=== PATIENT | male | born 1950 | race Caucasian/White ===

== ENCOUNTER → 2023-09-04 10:56 | Outpatient (CLI) | payer MEDICARE, SELFPAY ==
--- NOTE | ~2023-09-04 | CT_ITS ---
CT of the Abdomen and Pelvis: Indication: Inguinal hernia Technique: 2.5 mm axial scans were obtained through the abdomen and pelvis following intravenous adm inistration of 100 cc of Omnipaque 350. Dose reduction technique was used on this scan by utilizing a utomated exposure control and iterative reconstruction technique. The dose-length product (DLP) was 9 91.26 mGy-cm. Findings: Scans through the lung bases are unremarkable. Multiple hepatic and renal cysts are noted. The spleen, pancreas, gallbladder, and adrenal glands are within normal limits. No evidence of aortic aneurysm. No lymphadenopathy. No bowel obstruction or bowel wall thickening. There is no evidence to suggest acute appendicitis. Th ere is sigmoid diverticulosis. Images through the pelvis are degraded by streak artifact from bilateral hip arthroplasty. Urinary bl adder grossly unremarkable. No definite pelvic mass seen. No ascites. Small fat-containing right ingu inal hernia noted. Impression: Small fat-containing right inguinal hernia. Reviewed, dictated and finalized at [facility]. HING DIETITIAN Impression: Small fat-containing right inguinal hernia.
[2023-09-04 11:26] LABS: Estimated Glomerular Filt Rate > 60
== END ==
PROVIDERS: PCP Family Medicine; Visit Provider Family Medicine
DX: K40.90 Unilateral inguinal hernia, without obstruction or gangrene, not specified as recurrent (principal)
CPT/HCPCS: 74177; Q9967

== ENCOUNTER 2023-10-08 10:52 | Outpatient (CLI) | payer MEDICARE, SELFPAY ==
[2023-10-08 12:08] LABS: Anion Gap 7 mmol/L (8-16); Blood Urea Nitrogen 19 mg/dL (9-20); Calcium 9.2 mg/dL (8.4-10.2); Carbon Dioxide 29 mmol/L (22-30); Chloride 102 mmol/L (98-107); Estimated Glomerular Filt Rate > 60; Glucose 103 mg/dL (65-110); Potassium 4.3 mmol/L (3.4-5.0); Sodium 138 mmol/L (137-145)
== END 2023-10-08 10:53 | disposition home or self-care (01) ==
LOC: ANHSURGERY 10:57
PROVIDERS: Anesthesiology; PCP Family Medicine; Visit Provider Surgery
DX: Z01.818 Encounter for other preprocedural examination (principal); K40.90 Unilateral inguinal hernia, without obstruction or gangrene, not specified as recurrent; Z79.899 Other long term (current) drug therapy
CPT/HCPCS: 36415; 80048; 86850; 86900; 86901

== ENCOUNTER 2023-10-10 00:35 | Day surgery (SDC) | payer MEDICARE, SELFPAY ==
[2023-10-02 13:53] VITALS: BMI 26.8
--- NOTE | 2023-10-02 14:07 | PC.NURSE ---
PRE-OP INSTRUCTIONS, PLEASE READ CAREFULLY Report to the Outpatient Waiting Room, entrance under the green pavilion located off [facility], at time _1000_ on date _10/10/23_. Planned Procedure Time: _1200_. Time changes happen often and if your time is changed the preop area will call you the afternoon before. - You and your visitor will be asked to self-screen and do not enter if you have any COVID symptoms. - A mask is optional within the hospital at this time. Patients may have clear liquids (water, carbonated beverages, clear teas, apple juice) until 3 hours prior to surgery with a maximum of 20 ounces. - No food from midnight until time of surgery Take the following medications with a SIP of water the morning of surgery: _PAROXETINE_ DO NOT STOP ANY OF YOUR OTHER PRESCRIPTION MEDICATIONS PRIOR TO SURGERY ?EXCEPT THE FOLLOWING Medications to discontinue per physician __FISH OIL PER DR. CAMPA'S INSTRUCTIONS___, Date to take last dose Please no make-up, nail greenlandic, hairspray, perfume, deodorant, or body powder the day of surgery. No jewelry (including any body piercings) or valuables the day of surgery, leave them at home. Please take a shower or bath the night before, or the morning of, surgery with an antibacterial soap. Wear comfortable, loose fitting clothing. - Jewelry must be removed prior to entering the operating room. Rings and piercings that are not removed may be cut off. - The hospital will not accept responsibility for valuables. - Please leave all valuables, including medications, at home the day of surgery. If you are going home after surgery, a licensed otr driver must drive you home. - NO public transportation without another adult if you receive anesthesia. - We recommend that an adult stay with you for 24 hours following discharge. - We also recommend that you do not drive, make important decision, drink alcoholic beverages, or take any drugs that were not prescribed by your health care provider for at least 24 hours after your discharge time. Follow any additional instructions given to you from your surgeon. If you or anyone in your household have experienced Covid symptoms in the past week, please notify your surgeon or the nurse liaison at the phone number below for possible testing. Telephone instructions given to _PATIENT_and asked if any additional questions and then verbalized understanding. Patient advised to call surgeon office or pre surgery nurse liaison [phone] if any additional questions.
[2023-10-10] VITALS (8 sets, daily range): BP systolic 128–148; BP diastolic 79–100; PULSE 69–78; RESP 13–21; TEMP 36.6; O2SAT 94–96
[2023-10-10] MEDS: ACETAMINOPHEN 500 MG TABLET 1000 MG PO (10:22)
[2023-10-10] MEDS: LACTATED RINGERS 1,000 ML 30 ML IV CONT ×2 (10:41→13:42)
[2023-10-10] MEDS: KETOROLAC 15 MG/ML VIAL (*BKC) IV PUSH (10:42)
--- NOTE | 2023-10-10 11:37 | WPDANESEPPF ---
Anes - Initial Pre Proc Eval Procedure: Operation Date: 10/10/23 12:00 Proposed Procedures p Robotic Assisted Right Inguinal Hernia Repair with Mesh - Tala Houser MD Date/Time: 10/10/23 11:37 Surgeon: Tala Houser MD Pre Op Diagnosis: Right Inguinal Hernia Patient Data Age: 73 Gender: M Height: 1.91 m Weight: 98.4 kg Last Vital Signs Temp 97.9 F 10/10/23 10:05 Pulse 78 10/10/23 10:05 Resp 16 10/10/23 10:05 BP 143/100 H 10/10/23 10:05 Pulse Ox 96 10/10/23 10:05 O2 Del Method Room Air 10/10/23 10:05 Allergies Allergy/AdvReac Type Severity Reaction Status Date / Time No Known Allergies Allergy Mild Verified 10/10/23 09:46 Home Medications Medication Instructions Recorded Confirmed Type [id number] tablet 1 tablet PO DAILY 05/10/22 10/02/23 History omega-3 fatty acids-fish oil 440 1 cap PO DAILY 05/10/22 10/02/23 History mg-880 mg capsule hydrocortisone 2.5 % topical cream 1 applic topical BID PRN rash #454 09/14/22 10/02/23 Rx grams tamsulosin 0.4 mg capsule See Rx Instructions .Route 07/08/23 10/02/23 Rx .COMPLEX #90 caps lisinopril 20 See Rx Instructions .Route 07/23/23 10/02/23 Rx mg-hydrochlorothiazide 12.5 mg .COMPLEX #90 tabs tablet paroxetine HCl 20 mg tablet See Rx Instructions .Route 07/23/23 10/02/23 Rx .COMPLEX #90 tabs simvastatin 40 mg tablet See Rx Instructions .Route 07/23/23 10/02/23 Rx .COMPLEX #90 tabs Patient hx anesthesia problems: none Family hx anesthesia problems: none Results Review: All pre-operative results and documents have been reviewed as part of the pre-operative evaluation. [facility] Past Medical History Medical History Annual physical exam Encounter for screening for malignant neoplasm of prostate Inguinal hernia Painful total knee replacement, left Right inguinal hernia Screening for colon cancer Surgical History Surgical History History of knee replacement procedure of left knee Status post left hip replacement Status post right hip replacement Family History Family History Father Cancer Mother Depression Breast cancer Other Diabetes mellitus Heart disease Social History Social History Smoking packs per day: 1.25 Smoking cigarettes per day: 25.0 Years smoked: 10 Smoking pack-years: 12.50 Smoking status: Former smoker Tobacco type: cigarettes Second hand tobacco smoke exposure: No Smoking end date: 09/16/79 Alcohol intake: current Drinks per week: 2 Substance use: never Substance use type: does not use Living arrangements: alone Occupation/Education: retired Gender identity (if verbalized by the patient): Male Spiritual care concerns: No Anes - Eval Final PreProcedure Day of Procedure 10/10/23 11:37 Patient weight: normal Heart: regular rate and rhythm Lungs: clear to auscultation Airway: Mallampati scale class II Neurological: alert and oriented Last oral intake: >/= 8 hours ASA classification: II Emergent: no Anesthetic plan: proceed Anesthesia type and monitoring: general ETT and standard monitoring Results Review: All pre-operative results and documents have been reviewed as part of the pre-operative evaluation. Informed Consent: The patient's anesthetic plan and its attendant risks and benefits were discussed with the patient/family/POA. Questions were solicited and answers provided to the satisfaction of the patient/family/POA.
--- NOTE | 2023-10-10 11:57 | WPDHPUPDATE1 ---
History and Physical Update Update Date/Time: 10/10/23 11:57 History and Physical has been reviewed, including an updated exam of the patient. There are NO changes in the patient's condition. Risks, benefits, and alternatives have been discussed and questions answered. Patient agrees to proceed with procedure.
[2023-10-10] MEDS: ceFAZolin 2 GM/D5W 50 ML 2 GM/50 ML BAG IVPB (12:10)
[2023-10-10] MEDS: BUPIVACAINE/EPINEPHRINE 0.5% 30 ML VIAL INFILTRATE (12:39)
--- NOTE | 2023-10-10 15:24 | P.OP_ITS ---
Procedure Note - Detailed Date of Procedure 10/10/23 Pre-op Diagnosis Right Inguinal Hernia Post-op Diagnosis Same Procedure Performed robotic assisted right inguinal hernia repair with mesh Surgeon Tala Houser MD Anesthesia General Indications 73-year-old male with progressively worsening right inguinal hernia over the last few years Findings indirect right inguinal hernia Description of Procedure Patient was brought into the operating room and placed in the supine position. After adequate induction of general anesthesia, the patient was prepped and draped in normal sterile fashion. A time-out was then done to verify the patient's identity, as well as the procedure being performed. Began by making a 8 mm incision in the supraumbilical region, a Veress needle was then placed into the peritoneal cavity. CO2 gas was then insufflated and after adequate pneumoperitoneum was achieved, the Veress needle was removed. I then placed an 8 mm trocar through this incision. I then placed the endoscope through this trocar site and under direct visualization placed 2 further 8 mm ports in the right and left mid abdomen. The Medic [employer]i robot was then docked to the 3 trocar sites. I then scrubbed out and went to the robotic console. Upon examining the pelvis, it was noted that the patient had a moderate right inguinal hernia. The left side was examined and no hernia defect was noted. I began by making a preperitoneal flap approximately 6 cm superior to the defect. This flap was carried medially past the umbilical ligaments in laterally to the transversalis. It then began dissection of my medial compartment taking this down to the pubic tubercle. I then began the lateral dissection taking this down to the transversalis fascia. Once these compartments were achieved, I began dissection around the cord structures. A moderate indirect hernia was noted at this point. Using careful dissection, was able to reduce indirect hernia sac off the cord structures. Once this was adequately done, I went ahead and placed a large piece of 3D Max mesh into the abdominal cavity. The mesh was carefully positioned, centering the center of the mesh over the indirect defect. Once this was done, was very satisfied with our repair. Using 3-0 Vicryl sutures, I tacked the mesh medially to Storm's ligament. Two lateral sutures were placed from the mesh to the transversalis fascia. I then closed the peritoneal flap with a running 2.0 V Lock suture. The abdomen was then desufflated, and all ports were removed. All incisions were then closed with the 4.0 monocryl suture. Dermabond was placed on each wound. The patient tolerated the procedure well, was extubated in the operating room postoperatively, and will now be transferred to the recovery room in stable condition. Implants large 3DMax mesh Estimated Blood Loss 10 Drains No Packing No Pathology None sent Complications No immediate complications Condition Stable Disposition PACU [facility] Billing Surgery - Charge Forward: Surgery Billing
== END 2023-10-10 15:28 | disposition home or self-care (01) ==
PROVIDERS: PCP Family Medicine; Visit Provider Surgery
PROC: 8E0Y4CZ Robotic Assisted Procedure of Lower Extremity, Percutaneous Endoscopic Approach (ICD-10-PCS; CPT 49650; principal; 2023-10-10 12:00)
DX: K40.90 Unilateral inguinal hernia, without obstruction or gangrene, not specified as recurrent (principal); I10 Essential (primary) hypertension; Z98.890 Other specified postprocedural states; Z87.891 Personal history of nicotine dependence; Z80.3 Family history of malignant neoplasm of breast; Z82.49 Family history of ischemic heart disease and other diseases of the circulatory system
CPT/HCPCS: 49650; S2900; A9270; C1781; J0690; J1100; J1170; J1885; J2405; J2704; J3010; J7120

== ENCOUNTER 2025-01-11 14:09 | Emergency (ER) | payer MEDICARE, SELFPAY ==
--- NOTE | 2025-01-11 14:46 | ED.GENADULT ---
HPI - General Adult General Chief complaint: Cardiac Arrest/CPR Stated complaint: cardiac arrest Time Seen by Provider: 01/11/25 14:16 History of Present Illness HPI narrative: Patient was found down in an alley CPR was started at 1:27 p.m. 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 Patient had remained asystole the entire duration CPR. Patient did have a Carrington device in place. Patient did have a pulse with compressions but no pulse during pulse check. Related Data Home Medications ?Medication ?Instructions ?Recorded ?Confirmed ?Last Taken ?Type omega-3 fatty acids-fish oil 440 1 cap PO DAILY 05/10/22 05/19/24 Unknown History mg-880 mg capsule aspirin 81 mg tablet,delayed 81 mg PO DAILY 12/26/23 05/19/24 Unknown History release (Adult Low Dose Aspirin) Allergies Allergy/AdvReac Type Severity Reaction Status Date / Time No Known Allergies Allergy Mild Verified 09/28/24 13:54 Review of Systems Review of Systems: ROS unobtainable: Yes unobtainable due to medical condition PMFSH Past Medical History Medical History (Updated 01/11/25 @ 14:54 by Juan Manzo MD) Chronic dermatitis of hands HC 2.5% cream Hypertension Right inguinal hernia Screening for colon cancer Encounter for screening for malignant neoplasm of prostate Annual physical exam Painful total knee replacement, left Hyperlipemia Surgical History Surgical History (Updated 05/19/24 @ 11:09 by Mercy Vo PA-C) Status post left hip replacement Status post right hip replacement History of knee replacement procedure of left knee Family History Family History Father Cancer Mother Depression Breast cancer Other Diabetes mellitus Heart disease Social History Social History Smoking packs per day: 1.25 Smoking cigarettes per day: 25.0 Years smoked: 10 Smoking pack-years: 12.50 Smoking status: Former smoker Tobacco type: cigarettes Second hand tobacco smoke exposure: No Smoking end date: 09/16/79 Alcohol intake: current Drinks per week: 2 Substance use: never Substance use type: does not use Living arrangements: alone Occupation/Education: retired Gender identity (if verbalized by the patient): Male Spiritual care concerns: No Exam Narrative: APPEARANCE: Unresponsive HEAD: normocephalic, atraumatic. EYES: Pupils fixed and dilated NOSE: Normal no drainage THROAT: Intubated RESPIRATORY: Intubated breath sounds bilaterally CARDIOVASCULAR: Asystole ABDOMINAL: Distended abdomen MUSCULOSKELETAL: Cyanotic with no movement NEURO: Unresponsive Medical Decision Making MDM Narrative Medical decision making narrative: [age] old male presents to the emergency department for evaluation after being found down. Patient had unknown amount of down time and received CPR for greater than 40 minutes. Patient received 6 rounds epi. At pulse check patient had no cardiac activity on bedside ultrasound. Time of was called at 2:10 p.m. Critical Care Time Critical Care Time Critical Care Time: Yes Total Critical Care Time: 35 Discharge Plan Discharge Clinical Impression: Cardiac arrest Patient Disposition: Condition: Patient Language: Mozambican Prescriptions: No Action omega-3 fatty acids-fish oil 440-880 mg capsule 1 cap PO DAILY aspirin [Adult Low Dose Aspirin] 81 mg tablet,delayed release (DR/EC) 81 mg PO DAILY hydrocortisone 2.5 % cream 1 applic topical BID PRN (Reason: rash) Qty: 454 0RF lisinopril-hydrochlorothiazide 20-12.5 mg tablet 1 tablet PO DAILY Qty: 90 0RF tamsulosin 0.4 mg capsule 0.4 mg PO QHS Qty: 90 0RF paroxetine HCl 20 mg tablet 20 mg PO DAILY Qty: 30 0RF simvastatin 40 mg tablet 40 mg PO DAILY Qty: 30 0RF Follow-up/Referrals: Mercy Vo PA-C [Primary Care Provider] -
--- NOTE | 2025-01-11 15:20 | PC.NURSE ---
Family arrived to identify patient.
--- NOTE | 2025-01-11 15:32 | PC.NURSE ---
RENAE Rodrigez notified of patients - will sign certificate
--- OUTSIDE RECORDS SUMMARY | 2025-01-11 16:29 | XMS_ITS | Clinical Summary ---
Author Organization [facility] Address [address] [place] [address] Care Team Providers Care Entry Level Mechanical Engineer Name Role Phone Eugene Leos MD Unavailable [phone] Luis Mae MD Primary Care Provider [phone] Source Comments [facility],non-owned Affiliates and Associated Physician Practices is amultiple site organization consisting of ambulatory clinics and hospital sitesin [place], [place], [place] and [place]. This disclosure is being madepursuant to the Care Everywhere program and may not contain all information available regarding this patient. Last updated 18.[facility] Allergies No known active allergies Medications * Be aware that medications may not be up to date on this document. Alwaysverify current medications with the patient. paroxetine (PAXIL) 20 MG tablet Take 20 mg by mouth daily after breakfast. Active lisinopril-hydr ochlorothiazide (PRINZIDE; ZESTORETIC) 20-12.5 MG tablet Take 1 Tab by mouth daily with lunch. Active simvastatin (ZOCOR) 40 MG tablet Take 40 mg by mouth at bedtime. Active vitamin b-12 (CYANCOBALAMIN) 1000 MCG tablet cr Take by mouth once daily Active CALCIUM CARBONATE PO Take by mouth once daily Active GLUCOSAMINE-CHO NDROITIN PO Take by mouth once daily Active ascorbic acid (VITAMIN C) 500 MG tablet Take 500 mg by mouth once daily Active folic acid 400 MCG tablet Take 400 mcg by mouth once daily Active Multiple Vitamins-Minera ls (CENTRUM ADULTS PO) Active Zinc 50 MG Active Pyridoxine HCl (B-6) 100 MG Active B Complex-C (SUPER B COMPLEX PO) Active Cholecalciferol (VITAMIN D3) 400 UNITS Active acetaminophen (TYLENOL) 500 MG tablet Take 500 mg by mouth every 4 hours as needed for Fever or Pain Maximum allowable Acetaminophen amount = 4 Grams (4000 mg) / 24 hours. Active celecoxib (CELEBREX) 200 MG capsuleIndicati ons:History of left knee replacement Take 1 Cap by mouth 2 times daily 60 Cap 5 7 Active HYDROcodone-yamilet taminophen (NORCO) 10-325 MG tablet Take 0.5-1 Tabs by mouth every 6 hours as needed for Pain 90 Tab 7 Active hydrocortisone (Hytone) 2.5 % cream APPLY CREAM TO AFFECTED AREA TWICE DAILY NEEDED FOR RASH 3 Active tamsulosin (Flomax) 0.4 MG capsule Take 1 (one) capsule by mouth at bedtime 3 Active Active Problems Problem Noted Date Diagnosed Date Knee joint replacement by other means 04/05/2015 Knee pain 04/26/2010 Family History Medical History Relation Name Comments Heart Disease Mother Relation Name Status Comments Mother Social History Tobacco Use Types Packs/Day Years Used Date Smoking Tobacco: Former Cigarettes 1 15 0 09/16/1970 - 09/16/1985 Smokeless Tobacco: Never Alcohol Use Standard Drinks/Week Comments Yes 0 (1 standard drink = 0.6 oz pur e alcohol) social only PHQ-2 Answer Date Recorded Patient Health Questionnaire-2 Score 2 09/02/2023 Sex and Gender Information Value Date Recorded Sex Assigned at Not on file Legal Sex Male 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 Gender Identity Not on file Sexual Orientation Not on file Last Filed Vital Signs Vital Sign Reading Time Taken Comments Blood Pressure 105/67 05/26/2017 7:08 AM CDT Pulse 80 05/26/2017 7:08 AM CDT Temperature 36.6 C (97.9 F) 05/26/2017 7:08 AM CDT Respiratory Rate 18 05/26/2017 7:08 AM CDT Oxygen Saturation 96% 05/26/2017 7:08 AM CDT Inhaled Oxygen Concentration - - Weight 100.4 kg (221 lb 6.4 oz) 05/23/2017 8:33 AM CDT Height 188 cm (6' 2 ) 05/23/2017 8:33 AM CDT Body Mass Index 28.43 05/23/2017 8:33 AM CDT Plan of Treatment Health Maintenance Due Date Last Done Comments COLOGUARD (AGES 45-75) - COL ON CA SCREENING 1950 COLON MONITORING 1950 COLONOSCOPY - COLON CA SCREENING 1950 CT COLONOGRAPHY - COLON CA SCREENING 1950 Colorectal Cancer Screening 1950 FIT - COLON CA SCREENING 1950 FLEX SIG - COLON CA SCREENING 1950 MEDICARE AWV 12 MONTHS 1950 HEPATITIS C SCREENING 06/05/1968 DTAP/TDAP/TD VACCINES (1 - Tdap) 1969 PNEUMOCOCCAL VACCINE 50+ (1 of 1 - PCV) 2000 ZOSTER VACCINE (1 of 2) 2000 AAA SCREENING 2015 COVID-19 VACCINE (1 - 2023-2 5 season) 2024 DEPRESSION SCREENING 09/16/2024 09/02/2023 INFLUENZA VACCINE (Season Ended) 2025 Respiratory Syncytial Virus (RSV) Vaccine Pt: or over 60 yrs (1 - 1-dose 75+ series) 2025 HEPATITIS B VACCINE Aged Out No longe r eligible based on patient's age to complete this topic HIB VACCINE Aged Out No longer eligi ble based on patient's age to complete this topic HPV VACCINE Aged Out No longer eligi ble based on patient's age to complete this topic MENINGOCOCCAL (Group B) VACC INE SHARED DECISION-MAKING Aged Out No longer eligibl e based on patient's age to complete this topic MENINGOCOCCAL GROUPS A/C/Y/W VACCINE Aged Out No longer eligible b ased on patient's age to complete this topic Medical Devices Implanted Type Area Help Desk Technician Device Identifier Shelf Expiration Date Model / Serial / Lot Cmnt Bone Cblt 40gm Hvisc Strl Implanted:Qty: 1 on 05/23/2017 by Eugene Leos MD at [facility] Left: Knee [employer] 11/13/2018 [id number] / / [id number] Cmpnt Fem Kn Lt Cr Cmnt Prm Vngrd Intlk Implanted:Qty: 1 on 05/23/2017 by Eugene Leos MD at [facility] Left: Knee [employer] 04/17/2027 [id number] / / [id number] Cmpnt Ptlr 31mm 1 Pg Wire Ascnt Arcm Kn Implanted:Qty: 1 on 05/23/2017 by Eugene Leos MD at [facility] Left: Knee [employer] 04/02/2022 [id number] / / [id number] Tray Tib 75mm Kn Cocr I Beam Implanted:Qty: 1 on 05/23/2017 by Eugene Leos MD at [facility] Left: Knee [employer] 05/01/2027 [id number] / / [id number] Vngrd Arcm Kn Ant Stab Implanted:Qty: 1 on 05/23/2017 by Eugene Leos MD at [facility] Left: Knee [employer] 03/23/2022 [id number] / / [id number] Insurance MEDICARE Advance Directives * Full Code (Latest Code Status on File) Date Activated Date Inactivated Comments 05/23/2017 2:29 PM 05/26/2017 2:38 PM * Full Code Date Activated Date Inactivated Comments 04/26/2010 10:42 AM 04/29/2010 11:32 PM Care Teams Entry Level Mechanical Engineer Relationship Specialty Start Date End Date Luis Mae MD [address] [place] [address] [place] [id number] PCP - General Internal Medicine 04/05/15 [place] [id number] [address] Orthopedic Surgery 04/05/15
--- OUTSIDE RECORDS SUMMARY | 2025-01-11 16:29 | XMS_ITS | Clinical Summary ---
Author Organization [facility] Address [address] [place] [id number] Care Team Providers Care Slubber Hand Name Role Phone Luis Mae MD Primary Care Provider [phone] Social History Tobacco Use Types Packs/Day Years Used Date Smoking Tobacco: Never Assessed Sex and Gender Information Value Date Recorded Sex Assigned at Not on file Legal Sex Male 6:04 PM CDT Gender Identity Not on file Sexual Orientation Not on file Plan of Treatment Health Maintenance Due Date Last Done Comments Colorectal Cancer Screening Colonoscopy (10 Years) 1950 Hepatitis C 1968 DTaP, Tdap and Td Vaccines ( 1 - Tdap) 1969 Pneumococcal Vaccine: 50+ Ye ars (1 of 1 - PCV) 2000 Zoster Vaccines (1 of 2) 2000 COVID-19 Vaccine (1 - 2023-2 5 season) 2024 RSV Immunization or 60+ Years (1 - 1-dose 75+ series) 2025 Meningococcal B Vaccine Aged Out No l onger eligible based on patient's age to complete this topic Meningococcal Vaccine Aged Out No vaibhav symone eligible based on patient's age to complete this topic RSV Immunizations Under 20 Months Aged Out No longer eligible based on patient's age to complete this topic Care Teams Slubber Hand Relationship Specialty Start Date End Date Luis Mae MD PCP - General 06/22/15
--- NOTE | 2025-01-11 16:45 | PC.NURSE ---
Patient released by [facility]
--- NOTE | 2025-01-12 11:36 | PCCCNOTE ---
Received a call from the pt's daughter inquiring on the location of the pt's body. Spoke with ED charge nurse and facility was previously waiting on [facility] to release the body. Called [facility] and spoke with Elpidio whom stated it was fine, he had called and gave permission to the warehouse selector to release the body to [facility] home in [facility]. Called the home at [phone] and spoke to Karime giving permission to retrieve the body. Pt's daughter Rut called at [phone] and updated on the status.
== END 2025-01-11 18:10 | disposition expired ==
PROVIDERS: Emergency Provider Emergency Medicine; PCP Physician Assistant Medical
DX: I46.9 Cardiac arrest, cause unspecified (principal); I10 Essential (primary) hypertension; E78.5 Hyperlipidemia, unspecified; L25.9 Unspecified contact dermatitis, unspecified cause; Z96.643 Presence of artificial hip joint, bilateral; Z96.652 Presence of left artificial knee joint; Z87.891 Personal history of nicotine dependence; Z79.82 Long term (current) use of aspirin; Z79.899 Other long term (current) drug therapy
CPT/HCPCS: 92950; 96374; 99285; J0171